=== PATIENT | male | born 1975 | race Caucasian/White ===

== ENCOUNTER 2025-01-29 00:39 | Day surgery (SDC) | payer OTHER, SELFPAY ==
--- OUTSIDE RECORDS SUMMARY | 2006-11-04 03:27 | XMS_ITS | Continuity of Care Document ---
Author Organization [facility] Address [address] [place] [address] [place] [address] Phone Care Team Providers Care Credit Risk Review Officer Name Role Phone Tony Layne MD Unavailable Unavailable Procedures Procedure Date Office/outpatient Visit, Est Office Consultation Advance Directives Directive Yes / No Effective Date File Name No Information Encounters Encounter Description Practice Location Reason(s) For Visit Diagnoses Date Provider Providers Copied on Encounter Office/outpati ent Visit, Est [facility], [address] [place] [address] [address], [place], [place], [id number], tel:[phone] SEC [place] Professional No Information [address]. [address] [facility] [place], [place], [id number], [place]. tel:[phone] Office Consultation [facility], [address] [place] [address] [address], [place], [place], [id number], tel:[phone] [facility] [place] Professional No Information [address] [email or web address], [facility] [place], [place], [id number], [place]. tel:[phone] Family History Family Member Type Diagnosis Age At Onset No Information Payers Payer name Insurance type Covered alliance party ID Authoriza tion(s) No Information Social History Type Description Quantity Date Captured Comments Sex Male Smoking Status No Information Chief Complaint And Reason For Visit No Information Reason For Referral Reason For Referral No Information History Of Present Illness Encounter Date Complaint History Of Prese nt Illness No Information Functional Status Date Functional Assessmen t No Information Instructions Date Instruction Additional Infor mation No Information Assessments Type Assessment Date No Information Patient Care Teams Name Effective Dates (start - stop) Status Members No Information
[2025-01-15 13:31] VITALS: BMI 39.6
--- OUTSIDE RECORDS SUMMARY | 2025-01-29 00:42 | XMS_ITS | Clinical Summary ---
Author Organization [facility] Address [address] [place] [id number] Care Team Providers Care Technology Trainer Name Role Phone Sarwat Oconnell MD Primary Care Provider + [phone] Javid Jimenes DO Unavailable [phone] Allergies No known active allergies Medications lisinopril-hydr oCHLOROthiazide (ZESTORETIC) 20-12.5 mg per tablet Take 1 tablet by mouth daily 06/19/2021 Active omeprazole (PriLOSEC) 20 mg capsule Take 1 capsule (20 mg total) by mouth daily Active testosterone cypionate (DEPO-TESTOTERO NE) 200 mg/mL injection 09/02/2024 Active meloxicam (MOBIC) 15 mg tablet Active Active Problems Problem Noted Date Diagnosed Date Elevated ferritin, hemoglobin, and red blood dominik l count 08/14/2021 Hemochromatosis, hereditary 08/14/2021 Surgical History Surgery Date Site/Laterality Comments KNEE SURGERY Medical History Medical History Date Comments Hx Other Medical 2 Knee surgerie s Hypertension Family History Medical History Relation Name Comments Heart disease Father Hypertension Father Hypertension; Colon cancer Paternal Grandmother Relation Name Status Comments Father Alive Mother Alive Paternal Grandmother Social History Tobacco Use Types Packs/Day Years Used Date Smoking Tobacco: Never Smokeless Tobacco: Never Alcohol Use Standard Drinks/Week Comments Yes 0 (1 standard drink = 0.6 oz pur e alcohol) AUDIT-C Answer Date Recorded Q1: How often do you have a drink containing alc ohol? 2-4 times a month 10/12/2024 Q2: How many drinks containi ng alcohol do you have on a typical day when you are drinking? 1 or 2 10/12/2024 Q3: How often do you have si x or more drinks on one occasion? 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 Not on file Not on file Not on file Obstetrics History Last Filed Vital Signs Vital Sign Reading Time Taken Comments Blood Pressure 128/85 10/12/2024 10:10 AM CDT Pulse 71 10/12/2024 10:10 AM CDT Temperature 36.7 C (98.1 F) 10/12/2024 10:10 AM CDT Respiratory Rate 18 10/12/2024 10:1 0 AM CDT Oxygen Saturation 98% 10/14/2023 2:35 PM CDT Inhaled Oxygen Concentration - - Weight 115.7 kg (255 lb 1.2 oz) 025 10:10 AM CDT Height 167.6 cm (5' 5.98) 10/12/2024 1 0:10 AM CDT Body Mass Index 41.19 10/12/2024 10:10 AM CDT Plan of Treatment Health Maintenance Due Date Last Done Comments Colon Cancer Screening-Colonoscopy 1973 Depression Screening 1973 Hepatitis C Screening 1973 Prostate Cancer Screening-PSA 1973 DTaP/Tdap/Td Vaccine (1 - Tdap) 1984 Hepatitis B Screening 1991 Regular Well Visit/Exam 18-64 1991 Zoster Vaccine (1 of 2) 2023 Covid-19 Vaccine (3 - 2024-2 6 season) 2025 07/16/2020, 06/18/2020 Influenza Vaccine (#1) 2025 03/31/2019 Pneumococcal vaccine <65 Aged Out No longer eligible based on patient's age to complete this topic Insurance UMR UHC UMR UHC Care Teams Technology Trainer Relationship Specialty Start Date End Date Sarwat Oconnell MD PCP - General Internal Medicine 07/24/21 Javid Jimenes DO [address] [place] [address] MEDICAL ONCOLOGY, [place] [address] Medical Oncologist/Manager Intelligence Hematology and Oncology 08/21/21
[2025-01-29 06:53] VITALS: BP 117/84; PULSE 88; RESP 16; TEMP 36.2; O2SAT 96
[2025-01-29] MEDS: LACTATED RINGERS 1,000 ML 150 ML IV CONT (07:03)
--- NOTE | 2025-01-29 07:47 | WPDANESEPPF ---
Anes - Initial Pre Proc Eval Procedure: Operation Date: 01/29/25 08:00 Proposed Procedures p Screening Colonoscopy - Yash Sheffield DO Date/Time: 01/29/25 07:47 Surgeon: Yash Sheffield DO Pre Op Diagnosis: Neoplasm screening Patient Data Age: 49 Gender: M Height: 1.68 m Weight: 111.3 kg Last Vital Signs Temp 97.2 F L 01/29/25 06:53 Pulse 88 01/29/25 06:53 Resp 16 01/29/25 06:53 BP 117/84 01/29/25 06:53 Pulse Ox 96 01/29/25 06:53 O2 Del Method Room Air 01/29/25 06:53 Allergies Allergy/AdvReac Type Severity Reaction Status Date / Time No Known Allergies Allergy Verified 01/29/25 06:51 Home Medications ?Medication ?Instructions ?Recorded ?Confirmed ?Type lisinopril 20 1 tablet PO DAILY 01/15/25 01/29/25 History mg-hydrochlorothiazide 12.5 mg tablet meloxicam 15 mg tablet 15 mg PO DAILY 01/15/25 01/29/25 History omeprazole 40 mg capsule,delayed 40 mg PO DAILY 01/15/25 01/29/25 History release semaglutide (weight loss) 0.25 1.7 mg subcut WEEKLY 01/15/25 01/29/25 History mg/0.5 mL subcutaneous pen injector (Wegovy) Patient hx anesthesia problems: none Family hx anesthesia problems: none Results Review: All pre-operative results and documents have been reviewed as part of the pre-operative evaluation. [facility] Social History Social History Smoking status: Never smoker Alcohol intake: never Substance use: never Living arrangements: with family Spiritual care concerns: No Anes - Eval Final PreProcedure Day of Procedure 01/29/25 07:47 Patient weight: obese Lungs: normal air movement Airway: Mallampati scale class II Neurological: alert and oriented Last oral intake: >/= 8 hours ASA classification: III Emergent: no Anesthetic plan: proceed Anesthesia type and monitoring: general GIVS and standard monitoring Results Review: All pre-operative results and documents have been reviewed as part of the pre-operative evaluation. HTN, hx of GLP1 off for 3 weeks. BMI 39. Informed Consent: The patient's anesthetic plan and its attendant risks and benefits were discussed with the patient/family/POA. Questions were solicited and answers provided to the satisfaction of the patient/family/POA.
--- NOTE | 2025-01-29 07:48 | PM.IMHP ---
H&P: HPI History of Present Illness Date/Time: 01/29/25 07:48 Chief Complaint: History of colon polyps Narrative: this is a 49-year-old man who presents for colonoscopy. He had a colonoscopy within the last few years but polyps were removed at that time. He denies any hematochezia or melena. He denies family history of colon cancer. Review of Systems Review of Systems: All systems reviewed & are unremarkable except as noted in HPI and below Constitutional: Constitutional: Denies chills, Denies fever(s), Denies headache(s) and Denies weight loss Eyes: Eyes: Denies change in vision ENT: Denies dizziness, Denies headache(s), Denies neck mass and Denies throat swelling Cardiovascular: Cardiovascular: Denies chest pain, Denies lightheadedness and Denies dyspnea Respiratory: Respiratory: Denies cough, Denies dyspnea and Denies wheezing Gastrointestinal: Gastrointestinal: Denies abdominal pain, Denies change in bowel habits, Denies nausea and Denies vomiting Genitourinary: Genitourinary: Denies hematuria and Denies dysuria Musculoskeletal: Musculoskeletal: Reports as per HPI Integumentary/Breasts: Skin/Breast: Reports as per HPI Neurologic: Denies dizziness and Denies headache(s) Allergic/Immunologic: Allergic/Immunologic: Denies throat swelling and Denies wheezing PMFSH Social History Social History Smoking status: Never smoker Alcohol intake: never Substance use: never Living arrangements: with family Spiritual care concerns: No Meds Home Medications and Allergies Home Medications ?Medication ?Instructions ?Recorded ?Confirmed ?Type lisinopril 20 1 tablet PO DAILY 01/15/25 01/29/25 History mg-hydrochlorothiazide 12.5 mg tablet meloxicam 15 mg tablet 15 mg PO DAILY 01/15/25 01/29/25 History omeprazole 40 mg capsule,delayed 40 mg PO DAILY 01/15/25 01/29/25 History release semaglutide (weight loss) 0.25 1.7 mg subcut WEEKLY 01/15/25 01/29/25 History mg/0.5 mL subcutaneous pen injector (Wegovy) Allergies Allergy/AdvReac Type Severity Reaction Status Date / Time No Known Allergies Allergy Verified 01/29/25 06:51 Vital Signs Vital Signs - 24 hr 01/29/25 06:53 Temperature 97.2 F L Pulse Rate 88 Respiratory Rate 16 Blood Pressure 117/84 Pulse Oximetry 96 Oxygen Delivery Room Air Exam Const: General: no acute distress and alert Orientation/consciousness: patient oriented x3 HENMT: Head: normocephalic and atraumatic Ears: hearing grossly normal bilaterally Face/Nose/Sinus: Normal nares present Mouth: Yes Normal oral and palatal mucosa present Eyes: Periorbital: periorbital findings normal Sclera: sclerae normal EOM: EOMs intact bilaterally Neck: Neck: normal visual inspection, no lymphadenopathy and trachea midline Chest: Chest palpation & inspection: normal inspection of the chest Resp: Effort & Inspection: normal respiratory effort Auscultation: clear to auscultation bilaterally Cardio: Jugular venous distension: no JVD Rate: regular rate Rhythm: regular rhythm Heart sounds: S1 normal heart sound present and S2 normal heart sound present Peripheral pulses: Peripheral pulses 2+ throughout GI: Inspection: normal to inspection GI Palp: Yes Soft to palpation, No Tenderness to palpation present (GI), No Guarding due to palpation present (GI) and No Rebound tenderness present Percussion: Yes normal to percussion Auscultation: normal bowel sounds : General: Yes no CVA tenderness Back/Spine/Pelvis: Back: no CVA tenderness Neuro: General: patient oriented x3, no focal motor deficits and CN's II-XI intact bilaterally Cognition (Neuro): normal cognition Speech: normal speech Motor exam (neuro): 5/5 motor strength present throughout Extrem: General: capillary refill normal and no clubbing, cyanosis or edema Assessment and Plan Assessment and plan (1) History of colon polyps: Code(s): Z86.0100 - Personal history of colon polyps, unspecified Status: Acute Assessment and Plan: I have recommended colonoscopy. I have discussed the procedure, risks, benefits, and alternatives. Questions were answered. Patient is agreeable to proceed.
[2025-01-29 08:20] VITALS: BP 104/59; PULSE 83; RESP 13; O2SAT 95
[2025-01-29 08:30] VITALS: BP 112/60; PULSE 83; RESP 13; O2SAT 95
[2025-01-29 08:40] VITALS: BP 106/68; PULSE 79; RESP 13; O2SAT 95
== END 2025-01-29 08:48 | disposition home or self-care (01) ==
PROVIDERS: PCP Internal Medicine; Visit Provider Surgery
PROC: 0DJD8ZZ Inspection of Lower Intestinal Tract, Via Natural or Artificial Opening Endoscopic (ICD-10-PCS; CPT 45378; principal; 2025-01-29 08:00)
DX: Z12.11 Encounter for screening for malignant neoplasm of colon (principal); K57.30 Diverticulosis of large intestine without perforation or abscess without bleeding; I10 Essential (primary) hypertension; E66.9 Obesity, unspecified; Z68.39 Body mass index [BMI] 39.0-39.9, adult; Z79.85 Long-term (current) use of injectable non-insulin antidiabetic drugs; Z86.0100 Personal history of colon polyps, unspecified
CPT/HCPCS: 45378; J2003; J2704; J7120